=== PATIENT | female | born 1995 | race Caucasian/White ===

== ENCOUNTER 2018-08-31 20:09 | Emergency (ER) | payer OTHER ==
[2018-08-31 20:23] VITALS: BP 113/70
[2018-08-31] MEDS ORDERED: TETRACAINE HCL 0.5% OPH SOLN 0.6 ML DROPERETTE OS ONE (22:12)
--- NOTE | 2018-08-31 22:14 | ER Document Report ---
ED General - General Chief Complaint: Eye Pain Stated Complaint: LEFT EYE INJURY Time Seen by Provider: 08/31/18 22:07 Mode of Arrival: Ambulatory Information source: Patient TRAVEL OUTSIDE OF THE [place] IN LAST 30 DAYS: No - HPI Patient complains to provider of: Left eye scratched. Questionable foreign body Onset: This afternoon Onset/Duration: Sudden Quality of pain: Burning Severity: Moderate Associated symptoms: None Exacerbated by: Denies Relieved by: Denies Similar symptoms previously: No Recently seen / treated by doctor: No Notes: 23-year-old female with possible scratch to her left cornea. Earlier today felt like there is a foreign object in it when she tried to evaluate it she thinks she might of scratched it with her fingernail. She wears contact lenses. She does not leave them in for extended periods of time. In fact, she changes them daily. - Related Data Allergies/Adverse Reactions: No Known Allergies Allergy (Unverified 08/31/18 20:12) Past Medical History - General Information source: Patient - Social History Smoking Status: Never Smoker Family History: Reviewed & Not Pertinent Patient has suicidal ideation: No Patient has homicidal ideation: No Renal/ Medical History: Denies: Hx Peritoneal Dialysis Review of Systems - Review of Systems Notes: Constitutional: No fevers. No chills. EENT: No eye redness. Left eye pain, redness, and swelling.. No ear pain. No sore throat. Cardiovascular: No chest pain. No palpitations. Respiratory: No cough. No shortness of breath. No respiratory distress. Gastrointestinal: No abdominal pain. No nausea, vomiting, or diarrhea. Genitourinary: Atraumatic. No lesions. No pain. No discharge. Musculoskeletal: Atraumatic. No swelling. No deformities. Skin: No rash or lesions. Lymphatic: No swollen lymph nodes. Neurologic: No headache. No syncope. Psychiatric: No suicidal or homicidal ideation. Physical Exam - Vital signs Vitals: Temp Pulse Resp BP Pulse Ox 98.3 F 71 16 113/70 100 08/31/18 20:22 08/31/18 20:22 08/31/18 20:22 08/31/18 20:22 08/31/18 20:22 - Notes Notes: General: Well-developed, well-nourished. In no acute distress. Non-toxic appearing. Cardiac: Well-perfused. Regular rate and rhythm. No murmurs, rubs, or gallops. Pulmonary: No respiratory distress. No cyanosis. Bilateral lung fiels are clear to auscultation. Abdominal: Non-distended. Non-rigid. Bowels sounds are present in all four quadrants. No guarding or rebound. HEENT: Head is atraumatic. Left conjunctiva is 2+ injected. There is copious tearing. PERRL, EOMI, fluorescein exam reveals no foreign bodies. There are no corneal abrasions. Upper lid is everted and no foreign bodies seen. There is a punctate opacified spot on the cornea just lateral to the pupil which is suspicious for corneal ulcer. Neck: Supple. No adenopathy. No meningismus. Dermatologic: Warm with good turgor. No rash. Atraumatic. Chest: Atraumatic. No chest wall tenderness to palpation. Musculoskeletal: Moves all extremities well. No range of motion deficits. no muscular or joint tenderness. No paraspinal muscle tenderness. no midline spinal tenderness or step-off. Genitourinary: Examination deferred Neurologic: No gross neurologic deficits. Psychiatric: Normal mood. Course - Re-evaluation Re-evalutation: 08/31/18 22:35 Patient is a contact lens wearer. Risk for ulceration is high. I spoke to ophthalmology on-call Dr. Marcelino who concurs about the probable diagnosis. He recommends an ointment that might help with the lubricating the lids. Originally I thought about Vigamox with an optic disc comes in ointment so probably Ciloxan. Also some Benson for pain. - Vital Signs Vital signs: Temp Pulse Resp BP Pulse Ox 98.3 F 71 16 113/70 100 08/31/18 20:22 08/31/18 20:22 08/31/18 20:22 08/31/18 20:22 08/31/18 20:22 - Consults DR MARCELINO Time consulted: 22:37 Reason for consultation: 08/31/18 22:37 Possible left corneal ulceration Consulted provider: follow-up in office - We will be glad to see the patient in the office in the morning. Call at 8:00 and she will get work done. Edith quinolone antibiotic ointment would be preferred to help with the lubrication. Discharge - Discharge Clinical Impression: Corneal ulcer Qualifiers: Laterality: left Qualified Code(s): H16.002 - Unspecified corneal ulcer, left eye Condition: Good Disposition: HOME, SELF-CARE Instructions: Corneal Ulceration ([facility]) Additional Instructions: You are to fill the antibiotics prescribed tonight and start immediately. In the morning, at 8:00, call the cellophane worker office. Indicate that you are seen in the emergency department and that the cellophane worker wishes to have you worked into tomorrow as scheduled. Take the pain medication as needed for moderate to severe pain only. Prescriptions: Hydrocodone/Acetaminophen [Benson 7.5-325 Tablet] 1 each PO Q6HP PRN #10 tablet PRN Reason: Ciprofloxacin HCl [Ciloxan 0.3% Oph Ointment 3.5 gm] 1 applic OP DAILY #1 tube Referrals: LEVAR MARCELINO MD [ACTIVE STAFF] - Follow up tomorrow
[2018-08-31] MEDS ORDERED: TETRACAINE HCL 0.5% OPH SOLN 4 ML ONE (22:16)
[2018-08-31] MEDS ORDERED: TETRACAINE HCL 0.5% OPH SOLN 4 ML OS ONE ×2 (22:19→22:27)
[2018-08-31] MEDS ORDERED: HYDROCODONE/ACETAMINOPHEN 5-325 MG TABLET PO ONE (22:38)
== END 2018-08-31 22:56 | disposition home or self-care (01) ==
LOC: ER 20:09
DX: H16.002 Unspecified corneal ulcer, left eye (principal)
CPT/HCPCS: 99283; J3490

== ENCOUNTER 2018-11-10 12:01 | Emergency (ER) | payer OTHER ==
[2018-11-10] MEDS ORDERED: NORMAL SALINE 1000 ML 1,000 ML IV ONE (12:33)
[2018-11-10] MEDS ORDERED: ONDANSETRON HCL INJ/PF 4 MG/2 ML SDV IV ONE (12:33)
[2018-11-10] MEDS ORDERED: DICYCLOMINE HCL INJ 20 MG/2 ML AMPULE IM STA (12:33)
--- NOTE | 2018-11-10 12:38 | ER Document Report ---
ED GI/ - General Chief Complaint: Nausea/Vomiting/Diarrhea Stated Complaint: NAUSEA,VOMITING,DIARRHEA Time Seen by Provider: 11/10/18 12:22 Mode of Arrival: Ambulatory Information source: Patient TRAVEL OUTSIDE OF THE [place] IN LAST 30 DAYS: No - HPI Patient complains to provider of: Diarrhea, Vomiting Notes: 11/10/18 12:35 Patient here with her daughter. Patient states that she has had diarrhea and vomiting for the last 8 days. Her daughter has been seen for the same exact symptoms that started at the same time. Patient states every time she drinks something she really has to go to the bathroom to have a bowel movement. If she eats solid food she vomits. She complains of some intermittent abdominal cramping. No fevers. No blood in her stool. No recent travel outside the [place]. She was on antibiotics a few weeks ago. She denies any chest pain or shortness of breath. No rash. Her symptoms are worse with eating and drinking, better when she does not. She feels like she may be dehydrated. She denies any dysuria or hematuria. No chronic medical problems. No other specific complaints at this time. - Related Data Allergies/Adverse Reactions: No Known Allergies Allergy (Verified 11/10/18 12:16) Past Medical History - Social History Smoking Status: Never Smoker Frequency of alcohol use: None Drug Abuse: None Family History: Reviewed & Not Pertinent Patient has suicidal ideation: No Patient has homicidal ideation: No Renal/ Medical History: Denies: Hx Peritoneal Dialysis Past Surgical History: Reports: Hx Cholecystectomy Review of Systems - Review of Systems -: Yes All other systems reviewed and negative Physical Exam - Vital signs Vitals: Temp Pulse Resp BP Pulse Ox 97.6 F 94 18 109/74 98 11/10/18 12:06 11/10/18 12:06 11/10/18 12:06 11/10/18 12:06 11/10/18 12:06 - Notes Notes: GENERAL: alert, cooperative, nontoxic, no distress. HEAD: normocephalic, atraumatic EYES: conjunctiva pink without discharge, no external redness or swelling. EARS: no external swelling, no external redness NOSE: atraumatic, no external swelling MOUTH/THROAT: mucous membranes moist and pink, posterior pharynx without erythema, swelling, exudate. No trismus or drooling. NECK: soft, supple, full range of motion, no meningismus. CHEST: no distress, lungs clear and equal throughout. No wheezing, rales, rhonchi. CARDIAC: regular rate and rhythm, no murmur, normal capillary refill, normal pulses. No peripheral edema noted. ABDOMEN: Soft, nontender. No rebound tenderness or guarding. No mass. BACK: full range of motion, no CVA tenderness. EXTREMITIES: full range of motion of all extremities. No redness, no swelling. NEURO: alert and oriented x 3, no focal deficits, full range of motion of all extremities. PYSCH: appropriate mood, affect. Patient is cooperative. SKIN: pink, warm, dry, no rash. Course - Re-evaluation Re-evalutation: 11/10/18 16:02 Patient is nontoxic-appearing stable vitals. Patient here with complaints of nausea, vomiting, diarrhea for the last 8 days. Her daughter has the same exact symptoms. No blood in her stool. No recent travel. She was on antibiotics a few weeks ago. No abdominal tenderness on exam. Vitals are stable. Patient was given IV fluids and was hydrated. Labs are unremarkable for any significant abnormalities. C. difficile culture was negative. Stool culture is negative. Patient looks well otherwise. Patient will be discharged home with a prescription for Zofran and Bentyl. Instructions drink plenty fluids. Follow- up with her doctor the next available appointment. Follow-up sooner for worsening pain, high fever, blood in her vomit or stool, or for any further concerns. The patient's emergency department workup and current diagnosis were explained to the patient and or family. Follow-up instructions were provided. Medications if prescribed were discussed. Instructions for when to return to the emergency department including specific worrisome symptoms were discussed with the patient and/or family. - Vital Signs Vital signs: Temp Pulse Resp BP Pulse Ox 98.7 F 81 18 108/60 100 11/10/18 15:53 11/10/18 15:53 11/10/18 15:53 11/10/18 15:53 11/10/18 15:53 - Laboratory Result Diagrams: 11/10/18 12:49 11/10/18 14:55 Laboratory results interpreted by me: 11/10/18 11/10/18 12:49 14:55 Potassium 3.4 L Total Protein 8.4 H Urine Protein 30 H Discharge - Discharge Clinical Impression: Nausea vomiting and diarrhea Condition: Stable Disposition: HOME, SELF-CARE Instructions: Diarrhea, Nonspecific ([facility]), Vomiting ([facility]) Additional Instructions: Take medication as prescribed. Drink plenty fluids. Follow-up with your doctor if not better in the next 3 to 5 days, sooner for worsening pain, high fever, persistent vomiting, blood in your vomit or stool, or for any further concerns. Prescriptions: Dicyclomine HCl [Bentyl 20 mg Tablet] 20 mg PO QID #20 tablet Ondansetron HCl [Zofran 4 mg Tablet] 1 tab PO Q4H PRN #10 tablet PRN Reason: Referrals: [facility] [Provider Group] - Follow up as needed
[2018-11-10 13:06] LABS: ABSOLUTE LYMPHOCYTES (AUTO) 0.9 10^3/uL (0.5-4.7); ABSOLUTE MONOCYTES (AUTO) 0.5 10^3/uL (0.1-1.4); ABSOLUTE NEUT (AUTO) 2.8 10^3/uL (1.7-8.2); BASOPHILS % (AUTO) 0.2 % (0-2); HEMATOCRIT 43.9 % (36.0-47.0); LYMPHOCYTES % (AUTO) 21.8 % (13-45); MEAN CORPUSCULAR HEMOGLOBIN 32.3 pg (27.0-33.4); MEAN CORPUSCULAR HGB CONC 34.1 g/dL (32.0-36.0); MEAN CORPUSCULAR VOLUME 95 fl (80-97); MONOCYTES % (AUTO) 11.9 % (3-13); PLATELET COUNT 233 10^3/uL (150-450); RED BLOOD COUNT 4.65 10^6/uL (3.72-5.28); RED CELL DISTRIBUTION WIDTH 13.2 % (11.5-14.0); SEGMENTED NEUTROPHILS % (AUTO) 65.1 % (42-78); TOTAL CELLS COUNTED % (AUTO) 100 %; WHITE BLOOD COUNT 4.3 10^3/uL (4.0-10.5)
[2018-11-10 13:19] LABS: APPEARANCE,URINE CLOUDY; BILIRUBIN,URINE NEGATIVE (NEGATIVE); GLUCOSE, URINE NEGATIVE (NEGATIVE); KETONES,URINE NEGATIVE (NEGATIVE); LEUKOCYTE ESTERASE,URINE NEGATIVE (NEGATIVE); NITRITE,URINE NEGATIVE (NEGATIVE); PROTEIN,URINE 30 mg/dL (NEGATIVE); UROBILINOGEN,URINE NEGATIVE mg/dL (<2.0)
[2018-11-10 13:20] LABS: COLOR,URINE YELLOW
[2018-11-10 15:32] LABS: ALANINE AMINOTRANSFERASE 34 U/L (9-52); ALBUMIN 4.8 g/dL (3.5-5.0); ALKALINE PHOSPHATASE 65 U/L (38-126); ANION GAP 13 (5-19); ASPARTATE AMINO TRANSFERASE 32 U/L (14-36); BILIRUBIN,DIRECT 0.2 mg/dL (0.0-0.4); BILIRUBIN,TOTAL 0.5 mg/dL (0.2-1.3); BLOOD UREA NITROGEN 13 mg/dL (7-20); CALCIUM 9.9 mg/dL (8.4-10.2); CARBON DIOXIDE 25 mmol/L (22-30); CHLORIDE 103 mmol/L (98-107); GLUCOSE 94 mg/dL (75-110); POTASSIUM 3.4 mmol/L (3.6-5.0); TOTAL PROTEIN 8.4 g/dL (6.3-8.2)
[2018-11-10 15:54] VITALS: BP 108/60
== END 2018-11-10 16:15 | disposition home or self-care (01) ==
LOC: ER 12:01
DX: R11.2 Nausea with vomiting, unspecified (principal); R19.7 Diarrhea, unspecified; Z90.49 Acquired absence of other specified parts of digestive tract
CPT/HCPCS: 99284; 96372; 96361; 96374; 36415; 87045; 87205; 83690; 85025; 81025; 80053; 81001; 87493; J0500; J2405; J7030